=== PATIENT | male | born 1990 | race Caucasian/White ===

== ENCOUNTER → 2018-12-31 | Outpatient (CLI) | payer OTHER ==
[~2018-12-31] MED LIST: PROHANCE 279.3MG/ML 15ML VIAL (A9576) As Ordered ONE; PROHANCE 279.3MG/ML 5ML VIAL (A9576) As Ordered ONE
--- NOTE | 2019-01-01 09:26 | REP ---
MRI of the brain without and with contrast Indication: Mixed conductive and sensorineural hearing loss, unilateral, left ear. Comparison: None Technique: MRI of the brain and IACs was performed without contrast utilizing axial DWI, T2, and FLAIR precontrast imaging of the brain and axial T2 3-D and axial T1 3-D of the IACs precontrast. Following the uneventful intravenous administration of 17.8 ml of ProHance, axial T1 of the brain imaging and axial and coronal T1 SPIR imaging of the IACs was performed with contrast. Findings: Brain: There is no restricted diffusion to suggest acute ischemia or infarction. The ventricles and sulci are symmetric. There is no extra-axial fluid collection. There is no mass effect. There is no midline shift or basal cistern effacement. The visualized flow voids are preserved. There is mild mucosal thickening of the ethmoid and sphenoid sinuses. Note is made of a a subcentimeter Tornwaldt cyst. IACs: The external auditory canals and middle ear cavities are clear. There is linear enhancement along the nurse within the left IC, suggestive of a neuritis. The right ICA is unremarkable. There is no abnormal lesion or enhancement. There is no mass within this cerebellar pontine angles. The mastoid air cells are clear. Impression: Asymmetric enhancement of the left seventh and eighth cranial nerves within the left internal auditory canal, a nonspecific finding which may represent neuritis. Electronically Signed by Devan Magaña MD 01/01/2019 09:18 A
== END ==
LOC: M RAD 15:25
PROVIDERS: ATTEND Family Medicine
DX: H91.90 Unspecified hearing loss, unspecified ear (principal)